=== PATIENT | female | born 1945 ===

== ENCOUNTER 2022-09-17 07:33 | Emergency (ER) | payer SELFPAY ==
[2022-09-17 07:38] VITALS: BP 118/98; PULSE 90; RESP 16; TEMP 36.6; O2SAT 100
[2022-09-17 07:47] VITALS: BP 140/89; PULSE 88; RESP 13; TEMP 36.6; O2SAT 100
[2022-09-17 07:50] VITALS: O2SAT 100
[2022-09-17 07:54] VITALS: PULSE 92
--- NOTE | 2022-09-17 07:59 | PC.NURSE ---
Patient took off leads, blood pressure cuff, and SPO2 monitor and proceeded to walk out of room and stated I'm going to go somewhere else because I would feel safer. I feel like I should of have had an X-ray by now. I proceeded to tell the patient I understand and that it has only been 23 minutes since coming in the ED. Patient then stated I know I would just feel safer .
== END 2022-09-17 08:00 | disposition left against medical advice (07) ==
LOC: ANHED 08:09
DX: T18.9XXA Foreign body of alimentary tract, part unspecified, initial encounter (principal)
CPT/HCPCS: 99199